=== PATIENT | male | born 1960 | race Caucasian/White ===

== ENCOUNTER 2021-12-26 08:15 | Outpatient (RCR) | payer OTHER, SELFPAY | END 2022-06-21 15:56 | disposition home or self-care (01) | PROVIDERS: PCP Family Medicine; Visit Provider Orthopaedic Surgery Sports Medicine | DX: M25.511 Pain in right shoulder (principal); Z51.89 Encounter for other specified aftercare | CPT/HCPCS: 97110 ==

== ENCOUNTER 2022-04-03 14:34 | Outpatient (CLI) | payer OTHER, SELFPAY ==
[2022-04-03 14:13] LABS: Albumin* 4.3 g/dL (3.3-5.0); Chloride* 100 mmol/L (96-114); Sodium* 138 mmol/L (135-149)
[2022-04-03 14:14] LABS: Potassium* 4.4 mmol/L (3.6-5.1)
[2022-04-03 14:15] LABS: Cholesterol* 156 mg/dL (90-199)
[2022-04-03 14:16] LABS: Alanine Aminotransferase* 26 U/L (4-50); Alkaline Phosphatase* 96 U/L (40-150); Aspartate Amino Transferase* 25 U/L (12-35); Bilirubin Total* 0.5 mg/dL (0.1-1.5); Blood Urea Nitrogen* 21 mg/dL (7-30); Carbon Dioxide* 25 mmol/L (20-32); Creatinine* 0.8 mg/dL (0.5-1.5); Estimated Glomerular Filt Rate 100 ml/min; Glucose* 99 mg/dL (60-115); Total Protein* 6.8 g/dL (6.0-8.3); Triglycerides* 208 mg/dL (40-149)
[2022-04-03 14:17] LABS: Calcium* 9.2 mg/dL (8.4-10.6); HDL Cholesterol* 41 mg/dL (>=40); LDL Cholesterol Calculated 73 mg/dL (<100)
[2022-04-03 14:43] LABS: PSA Screen* 1.23 ng/mL (0.10-4.00)
== END 2022-04-03 14:35 | disposition home or self-care (01) ==
PROVIDERS: PCP Family Medicine; Visit Provider Physician Assistant Medical
DX: Z00.00 Encounter for general adult medical examination without abnormal findings (principal); Z13.6 Encounter for screening for cardiovascular disorders; Z12.5 Encounter for screening for malignant neoplasm of prostate
CPT/HCPCS: 80053; 80061; 84153

== ENCOUNTER 2022-11-15 14:45 | Outpatient (RCR) | payer OTHER, SELFPAY | END 2023-02-14 10:23 | disposition home or self-care (01) | PROVIDERS: PCP Physician Assistant Medical; Visit Provider Physician Assistant Medical | DX: M54.50 Low back pain, unspecified (principal); Z51.89 Encounter for other specified aftercare | CPT/HCPCS: 97110; 97140; 97161 ==

== ENCOUNTER 2022-12-05 18:20 | Emergency (ER) | payer OTHER, SELFPAY ==
[2022-12-05 18:25] VITALS: BP 112/71; PULSE 77; RESP 16; TEMP 36.9; O2SAT 98; BMI 27.3
[2022-12-05 19:22] VITALS: BP 131/78; PULSE 90; RESP 16; O2SAT 99
--- NOTE | 2022-12-05 19:48 | CRLHL7_ITS ---
For Patients: As a result of the Century Cures Act, medical imaging exams and procedure reports are released immediately into your electronic medical record. You may view this report before your referring provider. If you have questions, please contact your health care provider. INDICATION: Mild suprapubic pain. Possible diverticulitis. COMPARISON: None available. TECHNIQUE: CT examination of the abdomen and pelvis was performed with the uneventful intravenous administration of 91 cc of Isovue 370 while 3 mm thick axial sections were obtained from the lung bases through the pubic symphysis. Oral contrast was not administered. Please note that all CT scans at this facility use dose modulation, iterative reconstruction, and/or weight-based dosing when appropriate to reduce radiation dose to as low as reasonably achievable. FINDINGS: In the abdomen, the liver, spleen, pancreas, and adrenals are normal in appearance. There are a few small cysts arising from the left kidney, the largest measuring 2.5 centimeters in diameter. The gallbladder is normal in appearance. The abdominal aorta is normal in caliber with no sign of dilatation. There is no sign of retroperitoneal mass or adenopathy. The stomach, loops of small bowel, and right colon in the abdomen are normal in appearance. There is moderate diverticulosis of the descending colon with no sign of diverticulitis. There are changes of mesh hernia repair of the mid and lower pelvic wall with no sign of recurrence of a hernia. In the pelvis, the retrocecal appendix is normal in appearance with no sign of inflammatory process. The loops of small bowel and rectum in the pelvis are normal in appearance. There is moderate thickening of the wall of the mid sigmoid colon with mild pericolonic inflammatory stranding and inflammation of a diverticulum projecting posteriorly from the sigmoid colon. The findings are that of diverticulitis with no sign of abscess or perforation. There is severe diverticulosis of the rest of the sigmoid colon. The prostate is moderately enlarged and is otherwise normal in appearance. The urinary bladder is normal in appearance. There is no sign of pelvic or inguinal mass or adenopathy. There is no sign of free air or free fluid in the abdomen or pelvis. The lung bases are clear. There is minimal scoliosis of the lumbar spine convex towards the left. There is minimal anterior subluxation of L5 on S1 with moderate L5-S1 disc degenerative disease. Minimal posterior subluxation of L1 on L2 and of L2 on L3 with mild L1-2 and L2-3 disc degenerative disease. There is severe L3-4 and moderate L4-5 disc degenerative disease. The components of a left total hip prosthesis are in anatomic alignment with no sign of fracture, loosening, or dislocation. There is no sign of fracture of the upper [place] osseous structures. IMPRESSION: CT of the pelvis shows diverticulitis of the mid sigmoid colon with no sign of abscess or perforation. Severe sigmoid diverticulosis. Moderate enlargement of the prostate. Status post mesh hernia repair of the mid and inferior pelvic wall with no sign of recurrence of hernia. CT of the abdomen shows moderate diverticulosis of the descending colon with no sign of diverticulitis. Please note that all CT scans at this facility use dose modulation, iterative reconstruction, and/or weight-based dosing when appropriate to reduce radiation dose to as low as reasonably achievable. Dictated by Gary Doe MD @ 12/05/2022 9:46:25 PM (Electronically Signed)
[2022-12-05] MEDS: 0.9 % SODIUM CHLORIDE 1000 ml 1,000 ML IV (20:05)
[2022-12-05 20:06] LABS: Basophils Percent Auto 0.3 % (0.0-3.0); Eosinophils Percent Auto 1.1 % (0.0-7.0); Hematocrit 44.2 % (37.0-53.0); Hemoglobin* 14.8 gm/dL (13.5-17.5); Immature Granulocytes Pct Auto 0.2 %; Lymphocytes Percent Auto 7.2 % (20-44); Mean Corpuscular HGB Conc 34 gm/dL (32-36); Mean Corpuscular Hemoglobin 32 pg (26-34); Mean Corpuscular Volume 94 fL (80-100); Monocytes Percent Auto 8.7 % (0.0-11.0); Neutrophils Percent Auto 82.5 % (42.0-72.0); Platelet Count* 204 K/uL (140-440); RDW Coefficient of Variation % 12.7 % (11.5-15.5); Red Blood Count 4.69 m/uL (4.30-5.90); White Blood Count* 12.57 K/uL (4.50-11.00)
[2022-12-05 20:18] LABS: Chloride* 98 mmol/L (96-114); Potassium* 4.5 mmol/L (3.6-5.1); Sodium* 135 mmol/L (135-149)
[2022-12-05 20:21] LABS: Carbon Dioxide* 30 mmol/L (20-32); Creatinine* 0.7 mg/dL (0.5-1.5); Est. Creatinine Clearance* 75.61; Estimated Glomerular Filt Rate 104 ml/min
[2022-12-05 20:22] LABS: Blood Urea Nitrogen* 23 mg/dL (7-30); Calcium* 8.9 mg/dL (8.4-10.6); Glucose* 97 mg/dL (60-115)
[2022-12-05 20:23] LABS: Slide Review Reflex No
[2022-12-05 20:46] LABS: Appearance Urine Clear (Clear); Bilirubin Urine Negative (Negative); Blood Urine Negative (Negative); Color Urine Yellow (Yellow); Glucose Urine Negative (Negative); Ketones Urine Negative (Negative); Leukocyte Esterase Urine Negative (Negative); Nitrite Urine Negative (Negative); Protein Urine Negative (Negative)
[2022-12-05 20:55] LABS: RBC Urine 0-2 (0-2); WBC Urine 0-2 (0-5)
[2022-12-05 21:00] VITALS: BP 103/71; RESP 16; O2SAT 99
--- NOTE | 2022-12-05 22:13 | ED_ITS ---
HPI - General Adult General Chief complaint: Abdominal Pain Stated complaint: Pain on the belt line since yesterday Time Seen by Provider: 12/05/22 19:34 History of Present Illness HPI narrative: Pain across belt line in front of lower abdomen. Denies N/V. Cramping when he needs to urinate. 1 episode of diarrhea last night. Lack of appetite today. 62-year-old man presenting to the emergency department with complaint of a cramping pain in the lower abdomen particularly with need to urinate. No actual dysuria. No hematuria. Did have nonbloody diarrhea last night. Not noted pain with bowel movement. Just has not felt like eating. No fever. Pain just not really going away. Pain increased over the course of today. No known diverticular disease. Is not constipated. Notes a history of abdominal wall hernia repair. Review of records concerns diverticular disease. History also of GERD. Related Data Home Medications Medication Instructions Recorded Confirmed aspirin 81 mg tablet,delayed 81 mg PO 01/10/22 12/18/22 release cephalexin 500 mg capsule 500 mg PO QDAY 04/06/22 12/18/22 cholecalciferol (vitamin D3) 50 50 mcg PO QDAY 04/06/22 12/18/22 mcg (2,000 unit) capsule Previous Rx's Medication Instructions Recorded losartan 25 mg tablet 25 mg PO DAILY #90 tabs 08/29/22 hydrochlorothiazide 12.5 mg tablet See Rx Instructions .Route 12/06/22 .COMPLEX #90 tabs simvastatin 40 mg tablet 40 mg PO .Bedtime #90 tabs 12/21/22 Allergies Allergy/AdvReac Type Severity Reaction Status Date / Time metronidazole Allergy Severe Rash Verified 12/18/22 15:31 lisinopril Allergy Mild Cough Verified 12/18/22 15:31 Review of Systems Status of ROS: Reports: 6 or more systems reviewed and unremarkable except as noted in History and below [facility] Medical History Tendinitis involving left hip abductors ?M76.892 - Other specified enthesopathies of left lower limb, excluding foot (ICD-10) Greater trochanteric bursitis of left hip ?M70.62 - Trochanteric bursitis, left hip (ICD-10) Anticoagulation goal of INR 2.0 to 2.5 ?Z51.81 - Encounter for therapeutic drug level monitoring (ICD-10) ?Z79.01 - senior living (current) use of anticoagulants (ICD-10) Surgical History History of arthroscopy of right shoulder (09/05/05) ?Z98.890 - Other specified postprocedural states (ICD-10) History of arthroscopy of left shoulder (11/16/05) ?Z98.890 - Other specified postprocedural states (ICD-10) History of shoulder surgery (06/30/08) ?Z98.890 - Other specified postprocedural states (ICD-10) History of arthroscopy of left shoulder (05/06/10) ?Z98.890 - Other specified postprocedural states (ICD-10) S/P left knee arthroscopy (07/02/14) ?Z98.890 - Other specified postprocedural states (ICD-10) S/P arthroscopic partial medial meniscectomy (11/16/16) ?Z98.890 - Other specified postprocedural states (ICD-10) History of carpal tunnel release (07/17/18) ?Z98.890 - Other specified postprocedural states (ICD-10) History of arthroscopy of left shoulder (07/30/19) ?Z98.890 - Other specified postprocedural states (ICD-10) Varicose veins of both lower extremities ?I83.93 - Asymptomatic varicose veins of bilateral lower extremities (ICD-10) 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) ?Z96.649 - Presence of unspecified artificial hip joint (ICD-10) History of colonoscopy ?Z98.890 - Other specified postprocedural states (ICD-10) Family History Brother Prostate cancer Mother Coronary artery disease Stroke High blood pressure Alzheimers disease Father High blood pressure Prostate cancer Son Anorexia Social History Narrative: Does not use illicit drugs Has 3 children Non-smoker Occasional alcohol consumption Smoking Status: Never smoker How often do you have a drink containing alcohol: never AUDIT-C Alcohol total score: 0 Non-prescribed substance use: denies use Little interest or pleasure in doing things: not at all Feeling down, depressed, or hopeless: not at all Exam Narrative: Exam Narrative: Pleasant. NAD. Breathing easily. Seems uncomfortable in transitions. Skin is warm and dry. No apparent rash. Extremities are without edema. Lungs appear to be clear. Heart in a regular rate and rhythm. Abdomen with normal bowel sounds. Mildly uncomfortable without peritoneal signs to palpation in the left lower and mid abdomen. No flank pain. Abdominal scars consistent with prior surgery. Const: Vital Signs, click to edit/add: Vital Signs - 24 hr 12/05/22 18:25 12/05/22 19:22 12/05/22 21:00 Temperature 98.4 F Pulse Rate [Pulse Oximeter] 77 90 Respiratory Rate 16 16 16 Blood Pressure [Ri ght Upper Arm] 112/71 131/78 103/71 Pulse Oximetry 98 99 99 Oxygen Delivery Me thod Room Air Room Air Room Air Documenting provider has reviewed patient's vital signs: yes Course Vital Signs Vital signs: Initial Vital Signs Temperature 98.4 F 12/05/22 18:25 Temperature Source Temporal Artery Scan 12/05/22 18:25 Pulse Rate 77 12/05/22 18:25 Pulse Rhythm Regular 12/05/22 18:25 Pulse Strength 3+ Normal 12/05/22 18:25 Respiratory Rate 16 12/05/22 18:25 Blood Pressure 112/71 12/05/22 18:25 Blood Pressure Mean 84 12/05/22 18:25 Blood Pressure Position Sitting 12/05/22 18:25 Pulse Oximetry 98 12/05/22 18:25 Oxygen Delivery Method Room Air 12/05/22 18:25 Vital Signs Temperature 98.4 F 12/05/22 18:25 Pulse Rate 77 12/05/22 18:25 Respiratory Rate 16 12/05/22 18:25 Blood Pressure 112/71 12/05/22 18:25 Pulse Oximetry 98 12/05/22 18:25 Oxygen Delivery Method Room Air 12/05/22 18:25 Temperature 98.4 F 12/05/22 18:25 Pulse Rate 90 12/05/22 19:22 Respiratory Rate 16 12/05/22 21:00 Blood Pressure 103/71 12/05/22 21:00 Pulse Oximetry 99 12/05/22 21:00 Oxygen Delivery Method Room Air 12/05/22 21:00 Medical Decision Making MDM Narrative Medical decision making narrative: Differential includes constipation, appendicitis, colitis, diverticulitis, ureteral stone and colic, cystitis, prostatitis, irritation of hernia. I suspect diverticulitis is most likely etiology. I think CT imaging would be warranted here regardless of labs. Does not want anything for pain or nausea. Will place IV and IV hydration anticipating contrasted imaging. Check labs. White count is mildly elevated. CRP as well. By my read the looks to be inflammatory changes visible in CT abdomen pelvis about the sigmoid colon consistent with diverticulitis. Otherwise diverticular disease is noted as well. INDICATION: Mild suprapubic pain. Possible diverticulitis. COMPARISON: None available. TECHNIQUE: CT examination of the abdomen and pelvis was performed with the uneventful intravenous administration of 91 cc of Isovue 370 while 3 mm thick axial sections were obtained from the lung bases through the pubic symphysis. Oral contrast was not administered. Please note that all CT scans at this facility use dose modulation, iterative reconstruction, and/or weight-based dosing when appropriate to reduce radiation dose to as low as reasonably achievable. FINDINGS: In the abdomen, the liver, spleen, pancreas, and adrenals are normal in appearance. There are a few small cysts arising from the left kidney, the largest measuring 2.5 centimeters in diameter. The gallbladder is normal in appearance. The abdominal aorta is normal in caliber with no sign of dilatation. There is no sign of retroperitoneal mass or adenopathy. The stomach, loops of small bowel, and right colon in the abdomen are normal in appearance. There is moderate diverticulosis of the descending colon with no sign of diverticulitis. There are changes of mesh hernia repair of the mid and lower pelvic wall with no sign of recurrence of a hernia. In the pelvis, the retrocecal appendix is normal in appearance with no sign of inflammatory process. The loops of small bowel and rectum in the pelvis are normal in appearance. There is moderate thickening of the wall of the mid sigmoid colon with mild pericolonic inflammatory stranding and inflammation of a diverticulum projecting posteriorly from the sigmoid colon. The findings are that of diverticulitis with no sign of abscess or perforation. There is severe diverticulosis of the rest of the sigmoid colon. The prostate is moderately enlarged and is otherwise normal in appearance. The urinary bladder is normal in appearance. There is no sign of pelvic or inguinal mass or adenopathy. There is no sign of free air or free fluid in the abdomen or pelvis. The lung bases are clear. There is minimal scoliosis of the lumbar spine convex towards the left. There is minimal anterior subluxation of L5 on S1 with moderate L5-S1 disc degenerative disease. Minimal posterior subluxation of L1 on L2 and of L2 on L3 with mild L1-2 and L2-3 disc degenerative disease. There is severe L3-4 and moderate L4-5 disc degenerative disease. The components of a left total hip prosthesis are in anatomic alignment with no sign of fracture, loosening, or dislocation. There is no sign of fracture of the [place] osseous structures. IMPRESSION: CT of the pelvis shows diverticulitis of the mid sigmoid colon with no sign of abscess or perforation. Severe sigmoid diverticulosis. Moderate enlargement of the prostate. Status post mesh hernia repair of the mid and inferior pelvic wall with no sign of recurrence of hernia. CT of the abdomen shows moderate diverticulosis of the descending colon with no sign of diverticulitis. Please note that all CT scans at this facility use dose modulation, iterative reconstruction, and/or weight-based dosing when appropriate to reduce radiation dose to as low as reasonably achievable. Dictated by Gary Doe MD @ 12/05/2022 9:46:25 PM Remained reasonably well in the emergency department with consistent vitals. See patient discharge plan Lab Data Lab results reviewed: Yes I reviewed the patient's lab results Labs: Lab Results 12/05/22 12/05/22 Range/Units 20:00 20:39 WBC 12.57 H (4.50-11.00) K/uL RBC 4.69 (4.30-5.90) m/uL Hgb 14.8 (13.5-17.5) gm/dL Hct 44.2 (37.0-53.0) % MCV 94 (80-100) fL MCH 32 (26-34) pg MCHC 34 (32-36) gm/dL RDW Coeff of Lennie 12.7 (11.5-15.5) % Plt Count 204 (140-440) K/uL Neut % (Auto) 82.5 H (42.0-72.0) % Lymph % (Auto) 7.2 L (20-44) % [place] % (Auto) 8.7 (0.0-11.0) % Eos % (Auto) 1.1 (0.0-7.0) % Baso % (Auto) 0.3 (0.0-3.0) % Neut # (Auto) 10.40 H (1.7-7.0) K/uL Lymph # (Auto) 0.90 (0.90-2.90) K/uL [place] # (Auto) 1.10 H (0.00-0.90) K/UL Eos # (Auto) 0.10 (0.00-0.50) K/uL Baso # (Auto) 0.00 (0.00-0.30) K/uL Abs Immat Gran (auto) 0.00 (0.00-0.30) K/uL Imm/Tot Granulo (auto) 0.2 % Sodium 135 (135-149) mmol/L Potassium 4.5 (3.6-5.1) mmol/L Chloride 98 (96-114) mmol/L Carbon Dioxide 30 (20-32) mmol/L BUN 23 (7-30) mg/dL Creatinine 0.7 (0.5-1.5) mg/dL Estimated Creat Clear 75.61 Estimated GFR 104 ml/min Glucose 97 (60-115) mg/dL Calcium 8.9 (8.4-10.6) mg/dL C-Reactive Protein 8.0 H (0.5-1.0) mg/dL Urine Color Yellow (Yellow) Urine Appearance Clear (Clear) Urine pH 8.0 (5.0-8.5) Ur Specific [place] 1.020 (1.000-1.030) Urine Protein Negative (Negative) Urine Glucose (UA) Negative (Negative) Urine Ketones Negative (Negative) Urine Blood Negative (Negative) Urine Nitrite Negative (Negative) Urine Bilirubin Negative (Negative) Urine Urobilinogen 2.0 A (0.2-1.0) Ur Leukocyte Esterase Negative (Negative) Urine RBC 0-2 (0-2) Urine WBC 0-2 (0-5) Ur Squamous Epith Cells None (None-Few) Urine Bacteria None (None) Discharge Plan Discharge Clinical Impression: Diverticulitis, Abdominal pain Patient Disposition: Home, Self-Care Condition: Stable Additional Instructions: Stay well-hydrated. Generally also maintain good fiber intake. Return for marked increase in persistent pain, fever, repeated vomiting. Metronidazole and ciprofloxacin and [place] from [facility]. Prescriptions: No Action aspirin 81 mg tablet,delayed release (DR/EC) 81 mg PO cephalexin 500 mg capsule 500 mg PO QDAY cholecalciferol (vitamin D3) 50 mcg (2,000 unit) capsule 50 mcg PO QDAY losartan 25 mg tablet 25 mg PO DAILY Qty: 90 1RF Rx Instructions: Take for high blood pressure. hydrochlorothiazide 12.5 mg tablet See Rx Instructions .ROUTE .COMPLEX Qty: 90 1RF Dose Instruction: Take 1 tablet by mouth once daily for blood pressure Rx Instructions: Take 1 tablet by mouth once daily for blood pressure simvastatin 40 mg tablet 40 mg PO .Bedtime Qty: 90 0RF Follow Up/Referrals: Caterina Helms PA-C [Primary Care Provider] - Stand Alone Forms: [facility] Info Instructions
== END 2022-12-05 22:19 | disposition home or self-care (01) ==
PROVIDERS: Emergency Provider Family Medicine; PCP Physician Assistant Medical
DX: K57.92 Diverticulitis of intestine, part unspecified, without perforation or abscess without bleeding (principal)
CPT/HCPCS: 36415; 74177; 80048; 81001; 85025; 86140; 99284; J7030; Q9967

== ENCOUNTER 2023-04-06 07:37 | Outpatient (CLI) | payer OTHER, SELFPAY | END 2023-04-06 07:38 | disposition home or self-care (01) | LOC: NFLDREF 04-07 08:43 | PROVIDERS: PCP Physician Assistant Medical; Referring Provider Physician Assistant Medical; Visit Provider Physician Assistant Medical | DX: E78.5 Hyperlipidemia, unspecified (principal); I10 Essential (primary) hypertension; Z12.5 Encounter for screening for malignant neoplasm of prostate; Z13.1 Encounter for screening for diabetes mellitus | CPT/HCPCS: 80053; 80061; 84153; 86140 ==

== ENCOUNTER 2023-07-25 14:08 | Outpatient (CLI) | payer OTHER, SELFPAY | END 2023-07-25 14:09 | disposition home or self-care (01) | LOC: LKVREF 14:09 | PROVIDERS: PCP Physician Assistant Medical; Visit Provider Physician Assistant Medical | DX: N48.6 Induration penis plastica (principal) | CPT/HCPCS: 84443 ==

== ENCOUNTER 2023-08-05 08:19 | Emergency (ER) | payer OTHER, SELFPAY ==
[2023-08-05 08:24] VITALS: BP 121/78; PULSE 56; RESP 18; TEMP 36.2; O2SAT 95; BMI 27.0
--- NOTE | 2023-08-05 08:42 | ED.GENADULT ---
HPI - General Adult General Date Seen: 08/05/23 Chief complaint: Allergic Reaction Stated complaint: allergic reaction to medication Time Seen by Provider: 08/05/23 08:25 Source: patient, RN notes reviewed and old records reviewed Mode of arrival: ambulatory Limitations: no limitations History of Present Illness HPI narrative: Patient is a 63-year-old male who was recently seen by Dr. Poole for problems with his right ear. He had been prescribed Augmentin previously and was switched to cefuroxime by Dr. Poole. Apparently the pharmacist told him to finish out his 1st prescription before starting the new 1, or at least that was his understanding, so he did not start the new antibiotic until Sunday morning, 2 days ago. He says this morning he has been intensely itchy. His skin was red from itching although it does not sound like he has had any hives or clear rash. He does have a history of an allergic reaction to metronidazole and developed a rash, he says that he was worried about getting to the point of having a rash like that again which is why came in. He took some Benadryl and used hydrocortisone prior to coming in. He has not had any difficulty breathing, facial swelling, wheezing or other airway concerns. Related Data Home Medications Medication Instructions Recorded Confirmed aspirin 81 mg tablet,delayed 81 mg PO 01/10/22 07/31/23 release cholecalciferol (vitamin D3) 50 50 mcg PO QDAY 04/06/22 07/31/23 mcg (2,000 unit) capsule famotidine 20 mg tablet 20 mg PO QDAY 04/09/23 07/31/23 Previous Rx's Medication Instructions Recorded simvastatin 40 mg tablet 40 mg PO .Bedtime #90 tabs 04/09/23 ciprofloxacin 0.3 %-dexamethasone 4 drp otic (ear) QID 5 days #7.5 mL 07/25/23 0.1 % ear drops,suspension hydrochlorothiazide 12.5 mg tablet 12.5 mg PO QDAY #90 tabs 07/25/23 losartan 100 mg tablet 100 mg PO QDAY #90 tabs 07/25/23 cefuroxime axetil 500 mg tablet 500 mg PO BID 7 days #14 tabs 07/31/23 ciprofloxacin 0.3 %-dexamethasone 4 drp otic (ear) QID 7 days #7.5 mL 07/31/23 0.1 % ear drops,suspension clindamycin HCl 150 mg capsule 150 mg PO TID #15 caps 08/05/23 Allergies Allergy/AdvReac Type Severity Reaction Status Date / Time metronidazole Allergy Severe Rash Verified 07/31/23 09:04 lisinopril Allergy Mild Cough Verified 07/31/23 09:04 Review of Systems Status of ROS: Reports: 6 or more systems reviewed and unremarkable except as noted in History and below [facility] Medical History Elevated C-reactive protein (CRP) ?R79.82 - Elevated C-reactive protein (CRP) (ICD-10) Tendinitis involving left hip abductors ?M76.892 - Other specified enthesopathies of left lower limb, excluding foot (ICD-10) Greater trochanteric bursitis of left hip ?M70.62 - Trochanteric bursitis, left hip (ICD-10) Anticoagulation goal of INR 2.0 to 2.5 ?Z51.81 - Encounter for therapeutic drug level monitoring (ICD-10) ?Z79.01 - senior living (current) use of anticoagulants (ICD-10) Surgical History History of arthroscopy of right shoulder (09/05/05) ?Z98.890 - Other specified postprocedural states (ICD-10) History of arthroscopy of left shoulder (11/16/05) ?Z98.890 - Other specified postprocedural states (ICD-10) History of shoulder surgery (06/30/08) ?Z98.890 - Other specified postprocedural states (ICD-10) History of arthroscopy of left shoulder (05/06/10) ?Z98.890 - Other specified postprocedural states (ICD-10) S/P left knee arthroscopy (07/02/14) ?Z98.890 - Other specified postprocedural states (ICD-10) S/P arthroscopic partial medial meniscectomy (11/16/16) ?Z98.890 - Other specified postprocedural states (ICD-10) History of carpal tunnel release (07/17/18) ?Z98.890 - Other specified postprocedural states (ICD-10) History of arthroscopy of left shoulder (07/30/19) ?Z98.890 - Other specified postprocedural states (ICD-10) Varicose veins of both lower extremities ?I83.93 - Asymptomatic varicose veins of bilateral lower extremities (ICD-10) 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) ?Z96.649 - Presence of unspecified artificial hip joint (ICD-10) History of colonoscopy ?Z98.890 - Other specified postprocedural states (ICD-10) Family History Brother Prostate cancer Mother Coronary artery disease Stroke High blood pressure Alzheimers disease Father High blood pressure Prostate cancer Son Anorexia Social History Narrative: Does not use illicit drugs Has 3 children Non-smoker Occasional alcohol consumption Smoking Status: Never smoker How often do you have a drink containing alcohol: never AUDIT-C Alcohol total score: 0 Non-prescribed substance use: denies use Little interest or pleasure in doing things: not at all Feeling down, depressed, or hopeless: not at all service: Yes Exam Narrative: Exam Narrative: Vital signs reviewed In general, alert, well-appearing male. Breathing easily. ENT: Right ear continues to look abnormal, tiny perforation, erythema and granulation tissue. Left is normal. Oropharynx is normal, throat is normal. Neck: Supple, no stridor. Lungs: Clear no wheezing. Skin: Warm and dry well perfused. No rash at this time. Const: Vital Signs, click to edit/add: Vital Signs - 24 hr 08/05/23 08:24 Temperature 97.2 F L Pulse Rate [Pulse Oximeter] 56 L Respiratory Rate 18 Blood Pressure [Ri ght Upper Arm] 121/78 Pulse Oximetry 95 Oxygen Delivery Me thod Room Air Documenting provider has reviewed patient's vital signs: yes Course Course ED Course: Discussed management of the itching, he can continue to use Benadryl or can use a nonsedating antihistamine such as Zyrtec once or twice a day for the next couple of days until symptoms resolve. Will have him hold the cefuroxime, will discuss alternative with Dr. Poole in and prescribed appropriately. He has an appointment scheduled for follow-up with ENT on Sunday, in [address] Poole, prescribed Clindamycin per his recommendation. Plan for CT temporal bones at follow up appointment. Vital Signs Vital signs: Initial Vital Signs Temperature 97.2 F L 08/05/23 08:24 Temperature Source Temporal Artery Scan 08/05/23 08:24 Pulse Rate 56 L 08/05/23 08:24 Pulse Rhythm Regular 08/05/23 08:24 Pulse Strength 3+ Normal 08/05/23 08:24 Respiratory Rate 18 08/05/23 08:24 Blood Pressure 121/78 08/05/23 08:24 Blood Pressure Mean 92 08/05/23 08:24 Blood Pressure Position Sitting 08/05/23 08:24 Pulse Oximetry 95 08/05/23 08:24 Oxygen Delivery Method Room Air 08/05/23 08:24 Vital Signs Temperature 97.2 F L 08/05/23 08:24 Pulse Rate 56 L 08/05/23 08:24 Respiratory Rate 18 08/05/23 08:24 Blood Pressure 121/78 08/05/23 08:24 Pulse Oximetry 95 08/05/23 08:24 Oxygen Delivery Method Room Air 08/05/23 08:24 Temperature 97.2 F L 08/05/23 08:24 Pulse Rate 56 L 08/05/23 08:24 Respiratory Rate 18 08/05/23 08:24 Blood Pressure 121/78 08/05/23 08:24 Pulse Oximetry 95 08/05/23 08:24 Oxygen Delivery Method Room Air 08/05/23 08:24 Discharge Plan Discharge Clinical Impression: Drug-induced pruritus Patient Disposition: Home, Self-Care Condition: Stable Instructions: Itchy Skin (ED) Additional Instructions: Continue with Benadryl every 6 hours or Zyrtec once or twice a day as discussed for the next day or 2 or until itching subsides. For wheezing, difficulty breathing return to the ER. Discontinue current antibiotic, I will send a prescription for an alternate to your pharmacy shortly. Follow-up with Dr. Poole as planned. Prescriptions: New clindamycin HCl 150 mg capsule 150 mg PO TID Qty: 15 0RF No Action aspirin 81 mg tablet,delayed release (DR/EC) 81 mg PO cholecalciferol (vitamin D3) 50 mcg (2,000 unit) capsule 50 mcg PO QDAY famotidine 20 mg tablet 20 mg PO QDAY simvastatin 40 mg tablet 40 mg PO .Bedtime Qty: 90 3RF ciprofloxacin-dexamethasone 0.3-0.1 % drops,suspension 4 drp otic (ear) QID 5 Days Qty: 7.5 2RF Rx Instructions: TO AFFECTED EAR(S) losartan 100 mg tablet 100 mg PO QDAY Qty: 90 0RF Rx Instructions: New dose 1 tablet once daily for blood pressure hydrochlorothiazide 12.5 mg tablet 12.5 mg PO QDAY Qty: 90 3RF Rx Instructions: once a day for blood pressure cefuroxime axetil 500 mg tablet 500 mg PO BID 7 Days Qty: 14 0RF ciprofloxacin-dexamethasone 0.3-0.1 % drops,suspension 4 drp otic (ear) QID 7 Days Qty: 7.5 3RF Follow Up/Referrals: Caterina Helms PA-C [Primary Care Provider] - Stand Alone Forms: [facility] Info Instructions
== END 2023-08-05 08:50 | disposition home or self-care (01) ==
LOC: ED 08:44
PROVIDERS: Emergency Provider Emergency Medicine; PCP Physician Assistant Medical
DX: L29.8 Other pruritus (principal)
CPT/HCPCS: 99282; 99283; 99284

== ENCOUNTER 2023-11-20 08:18 | Emergency (ER) | payer OTHER, SELFPAY ==
[2023-11-20 08:21] VITALS: BP 129/73; PULSE 63; RESP 18; TEMP 36.9; O2SAT 97; BMI 25.8
--- NOTE | 2023-11-20 08:56 | ED_ITS ---
HPI - Abdominal Pain General Chief Complaint: Abdominal Pain Stated Complaint: Abdominal pain Time Seen by Provider: 11/20/23 08:26 History of Present Illness HPI narrative: This 63-year-old male comes in reporting abdominal pain over the past few days and became significantly worse last evening. He states that he did not sleep so well last night. Pain is worse with movement and especially when going over the bumps on the road on the way here. He has some increased pain when standing up straight also. The pain is localized in his left lower quadrant and he does have a history of diverticulitis. He arrives with normal vital signs. He does not report any blood in the toilet and has not had any fevers. Related Data Home Medications ?Medication ?Instructions ?Recorded ?Confirmed aspirin 81 mg tablet,delayed 81 mg PO 01/10/22 08/23/23 release cholecalciferol (vitamin D3) 50 50 mcg PO QDAY 04/06/22 08/23/23 mcg (2,000 unit) capsule famotidine 20 mg tablet 20 mg PO QDAY 04/09/23 08/23/23 Previous Rx's ?Medication ?Instructions ?Recorded simvastatin 40 mg tablet 40 mg PO .Bedtime #90 tabs 04/09/23 ciprofloxacin 0.3 %-dexamethasone 4 drp otic (ear) QID 5 days #7.5 mL 07/25/23 0.1 % ear drops,suspension hydrochlorothiazide 12.5 mg tablet 12.5 mg PO QDAY #90 tabs 07/25/23 ciprofloxacin 0.3 %-dexamethasone 4 drp otic (ear) QID 7 days #7.5 mL 07/31/23 0.1 % ear drops,suspension clindamycin HCl 150 mg capsule 150 mg PO TID #15 caps 08/05/23 losartan 100 mg tablet 100 mg PO QDAY #90 tabs 10/26/23 amoxicillin 875 mg-potassium 1 tab PO BID #20 tabs 11/20/23 clavulanate 125 mg tablet Allergies Allergy/AdvReac Type Severity Reaction Status Date / Time metronidazole Allergy Severe Rash Verified 08/23/23 14:31 lisinopril Allergy Mild Cough Verified 08/23/23 14:31 Review of Systems Status of ROS Reports: 10 or more systems reviewed and unremarkable except as noted in History and below Narrative Constitutional: No fevers, no weight gain or loss. Eyes: No discharge. No vision changes. HENT: No congestion, no sore throat, no ear pain. Cardiovascular: No chest pain, no palpitations. Respiratory: No shortness of breath, no wheezes, no cough. Gastrointestinal: No vomiting, no diarrhea. Abdominal pain as described above. Genitourinary: No dysuria, no hematuria. Musculoskeletal: Normal range of motion. Skin: No rashes, no pruritis. Neurological: No dizziness, weakness, sensory change, speech change. Endo/Heme/Allergies: No bruising or bleeding. No polydipsia. Pysch: no suicidality, no anxiety, no insomnia. All other systems reviewed and are negative. [facility] Medical History Elevated C-reactive protein (CRP) ?R79.82 - Elevated C-reactive protein (CRP) (ICD-10) Tendinitis involving left hip abductors ?M76.892 - Other specified enthesopathies of left lower limb, excluding foot (ICD-10) Greater trochanteric bursitis of left hip ?M70.62 - Trochanteric bursitis, left hip (ICD-10) Anticoagulation goal of INR 2.0 to 2.5 ?Z51.81 - Encounter for therapeutic drug level monitoring (ICD-10) ?Z79.01 - skilled nursing (current) use of anticoagulants (ICD-10) Surgical History History of arthroscopy of right shoulder (09/05/05) ?Z98.890 - Other specified postprocedural states (ICD-10) History of arthroscopy of left shoulder (11/16/05) ?Z98.890 - Other specified postprocedural states (ICD-10) History of shoulder surgery (06/30/08) ?Z98.890 - Other specified postprocedural states (ICD-10) History of arthroscopy of left shoulder (05/06/10) ?Z98.890 - Other specified postprocedural states (ICD-10) S/P left knee arthroscopy (07/02/14) ?Z98.890 - Other specified postprocedural states (ICD-10) S/P arthroscopic partial medial meniscectomy (11/16/16) ?Z98.890 - Other specified postprocedural states (ICD-10) History of carpal tunnel release (07/17/18) ?Z98.890 - Other specified postprocedural states (ICD-10) History of arthroscopy of left shoulder (07/30/19) ?Z98.890 - Other specified postprocedural states (ICD-10) Varicose veins of both lower extremities ?I83.93 - Asymptomatic varicose veins of bilateral lower extremities (ICD-10) 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) ?Z96.649 - Presence of unspecified artificial hip joint (ICD-10) History of colonoscopy ?Z98.890 - Other specified postprocedural states (ICD-10) Family History Brother Prostate cancer Mother Coronary artery disease Stroke High blood pressure Alzheimers disease Father High blood pressure Prostate cancer Son Anorexia Social History Narrative: Does not use illicit drugs Has 3 children Non-smoker Occasional alcohol consumption Smoking Status: Never smoker How often do you have a drink containing alcohol: never AUDIT-C Alcohol total score: 0 Non-prescribed substance use: denies use Little interest or pleasure in doing things: not at all Feeling down, depressed, or hopeless: not at all service: Yes Exam Narrative: Exam Narrative: Constitutional: Well-developed, well-nourished, no acute distress. HEENT: Normocephalic, atraumatic. Neck: Normal range of motion. Nontender. Supple. Heart: Regular. No murmurs. Normal rate. Intact distal pulses. Lungs: Clear to auscultation. No chest discomfort. No wheezes, rhonchi, or rales. Abdomen: Decreased bowel sounds. Pain localized in left lower quadrant. Rebound tenderness is present. No guarding. Genitalia: Deferred. Back: No midline tenderness. Normal range of motion. Extremities: Normal range of motion. No injury. Skin: Intact. No rash. Warm. No erythema or pallor. Neurologic: No altered sensation. No weakness. Alert and oriented. Psychiatric: No suicidality. No anxiety or depression. No insomnia. Nursing notes and vitals signs are reviewed. Const: Vital Signs, click to edit/add: Vital Signs - 24 hr 11/20/23 08:21 Temperature 98.5 F Pulse Rate [Right Pulse Oximeter] 63 Respiratory Rate 18 Blood Pressure [Ri ght Upper Arm] 129/73 Pulse Oximetry 97 Oxygen Delivery Me thod Room Air Course Vital Signs Vital signs: Initial Vital Signs Temperature 98.5 F 11/20/23 08:21 Temperature Source Temporal Artery Scan 11/20/23 08:21 Pulse Rate 63 11/20/23 08:21 Respiratory Rate 18 11/20/23 08:21 Blood Pressure 129/73 11/20/23 08:21 Blood Pressure Mean 91 11/20/23 08:21 Blood Pressure Position Sitting 11/20/23 08:21 Pulse Oximetry 97 11/20/23 08:21 Oxygen Delivery Method Room Air 11/20/23 08:21 Vital Signs Temperature 98.5 F 11/20/23 08:21 Pulse Rate 63 11/20/23 08:21 Respiratory Rate 18 11/20/23 08:21 Blood Pressure 129/73 11/20/23 08:21 Pulse Oximetry 97 11/20/23 08:21 Oxygen Delivery Method Room Air 11/20/23 08:21 Temperature 98.5 F 11/20/23 08:21 Pulse Rate 63 11/20/23 08:21 Respiratory Rate 18 11/20/23 08:21 Blood Pressure 129/73 11/20/23 08:21 Pulse Oximetry 97 11/20/23 08:21 Oxygen Delivery Method Room Air 11/20/23 08:21 MDM - Abdominal Pain MDM Narrative Medical decision making narrative: This patient has a history of diverticulitis discovered with CT imaging. His symptoms are suspicious for recurrent episode of diverticulitis. I did discuss the role of CT imaging but indicated this as an optional tool given the reassurance is of his vital signs and other exam. Most likely he will need to be treated for diverticulitis. The patient declined any lab and imaging at this time and understands signs and symptoms that would indicate a need for return and re-evaluation. He states that he had a reaction to the previous treatment which included Flagyl and Cipro. I provided prescription for Augmentin. He states that he will use [id number] pain medicines also as needed and directed. Discharge Plan Discharge Clinical Impression: Diverticulitis Patient Disposition: Home, Self-Care Condition: Stable Instructions: Diverticulitis (DC), Diverticulitis Diet (ED) Additional Instructions: Take medication as prescribed. Follow up with MD or return if worsening. Prescriptions: New amoxicillin-pot clavulanate 875-125 mg tablet 1 tab PO BID Qty: 20 0RF No Action aspirin 81 mg tablet,delayed release (DR/EC) 81 mg PO cholecalciferol (vitamin D3) 50 mcg (2,000 unit) capsule 50 mcg PO QDAY famotidine 20 mg tablet 20 mg PO QDAY simvastatin 40 mg tablet 40 mg PO .Bedtime Qty: 90 3RF ciprofloxacin-dexamethasone 0.3-0.1 % drops,suspension 4 drp otic (ear) QID 5 Days Qty: 7.5 2RF Rx Instructions: TO AFFECTED EAR(S) hydrochlorothiazide 12.5 mg tablet 12.5 mg PO QDAY Qty: 90 3RF Rx Instructions: once a day for blood pressure ciprofloxacin-dexamethasone 0.3-0.1 % drops,suspension 4 drp otic (ear) QID 7 Days Qty: 7.5 3RF clindamycin HCl 150 mg capsule 150 mg PO TID Qty: 15 0RF losartan 100 mg tablet 100 mg PO QDAY Qty: 90 0RF Rx Instructions: New dose 1 tablet once daily for blood pressure Follow Up/Referrals: Caterina Helms PA-C [Primary Care Provider] - Stand Alone Forms: [facility] Info Instructions
--- OUTSIDE RECORDS SUMMARY | 2023-11-20 09:03 | XMS_ITS | Continuity of Care Document ---
Author Organization [facility], [facility] Address [address] [place] [address] Care Team Providers Care Critical Care Educator Name Role Phone [facility] Primary Care Provider [phone] Assessment Encounter Date Assessment Date Assessment LastModified by Organization Details LastModified Time 11/15/2023 11/15/2023 63 yoM with Peyronie's disease, erectile dysfunction rstromquist Not available 11/13/2023 14:15:07 Plan of Treatment Reminders Order Date Submit Date Provider Last Modified By Organization Details Last Modified Time Details Appointments ESTABLISH ED 10 2023 01:30P Cari Carrillo MD Not available Not available Not available ESTABLISH ED 10 2023 08:40A M Jaret Carrillo MD Not available Not available Not available Lab None recorded. Referral None recorded. Procedures None recorded. Surgeries None recorded. Imaging None recorded. Medication Orders None recorded. Patient TargetsNo targets recorded. Patient InstructionsNo instructions recorded. Reason for Referral None Reported. Procedures Surgical History Date Name Laterality Status Provider Name and Address Organization Details Recorded Time 4 Darcie Carrillo active Skylar vicente, [facility] 11/19/2023 16:43:25 4 COMPLEX VISIT completed Jaret Carrillo MD [address] [place] [address],[address], [address], [facility] 11/15/2023 17:53:42 4 Darcie Carrillo completed Skylar vicente, [facility] 10/02/2023 14:40:59 4 Darcie completed Jaret Carrillo MD [address] [place] [address],[address] [place] [address], [id number], [facility] 10/04/2023 13:33:48 4 Xiaflex - Gerardo completed Skylar Gautam null, [facility] 09/28/2023 10:50:27 4 Xiaflex completed Jaret Carrillo MD [address], [place], [address], [facility] 10/01/2023 13:17:07 2 Colonoscopy completed Susan Fieldson null, [facility] 11/15/2023 14:33:18 0 Hernia Repair completed [facility], [facility] 11/15/2023 14:32:55 Imaging Results None recorded. Procedure Notes None recorded. Medical Equipment None Reported. Allergies Allergen ID Allergen Name Allergen Category Reaction Reaction Severity Criticality Documentation Date Start Date Code Code System Note Provider Name and Address Organization Details Recorded Time 996832 metronida zole medicatio n Not available Not available Not available 08/22/2023 6922 RxNorm [facility], [facility] 4 14:48:33 179428 lisinopri l medicatio n Not available Not available Not available 08/22/2023 22775 RxNorm [facility], [facility] 4 14:49:08 Medications Name Sig Start Date Stop Date Status Note LastModified by Organization Details LastModified Time losartan 50 mg tablet TAKE 1 TABLET BY MOUTH ONCE DAILY 08/21 completed Not Available Not Available Not Available cyclobenzap rine 10 mg tablet TAKE 1 TABLET BY MOUTH TWICE DAILY NEEDED FOR MUSCLE SPASM MAY CAUSE DROWSINES S 08/21 completed Not Available Not Available Not Available minocycline 100 mg capsule TAKE 1 CAPSULE BY MOUTH TWICE DAILY 08/21 completed Not Available Not Available Not Available prednisone 20 mg tablet TAKE 2 TABLETS BY MOUTH ONCE DAILY FOR 5 DAYS 08/21 completed Not Available Not Available Not Available clindamycin HCl 150 mg capsule TAKE 1 CAPSULE BY MOUTH THREE TIMES DAILY 08/21 completed Not Available Not Available Not Available simvastatin 40 mg tablet TAKE 1 TABLET BY MOUTH AT BEDTIME active Not Available Not Available No t Available meloxicam 7.5 mg tablet TAKE 1 TABLET BY MOUTH TWICE DAILY FOR BACK PAIN 08/21 completed Not Available Not Available Not Available losartan 25 mg tablet TAKE 1 TABLET BY MOUTH ONCE DAILY FOR HIGH BLOOD PRESSURE 08/21 completed Not Available Not Available Not Available cefuroxime axetil 500 mg tablet TAKE 1 TABLET BY MOUTH TWICE DAILY FOR 7 DAYS 08/21 completed Not Available Not Available Not Available losartan 100 mg tablet TAKE 1 TABLET BY MOUTH ONCE DAILY FOR BLOOD PRESSURE APPT active Not Available Not Available No t Available amoxicillin 500 mg-potassiu m clavulanate 125 mg tablet TAKE 1 TABLET BY MOUTH TWICE DAILY FOR 7 DAYS 08/21 completed Not Available Not Available Not Available clindamycin 1 % lotion APPLY LOTION TOPICALLY TWICE DAILY FOR 14 DAYS TO NECK 08/21 completed Not Available Not Available Not Available ciprofloxac in 0.3 %-dexametha sone 0.1 % ear drops,suspe nsion INSTILL 4 DROPS INTO THE EAR(S) 4 TIMES DAILY FOR 7 DAYS active Not Available Not Available No t Available Pepcid active Not Available Not Availa ble Not Available hydrochloro thiazide 12.5 mg tablet TAKE 1 TABLET BY MOUTH ONCE DAILY FOR BLOOD PRESSURE active Not Available Not Available No t Available Xiaflex 0.9 mg solution for injection Take 0.58 mg by injection route. 2023 active Not Available Not Available Not Avai lable Vitals Date Recorded Body height Body mass index (BMI) Body weight Provider Name and Address Organization Details Last Updated DateTime 11/15/2023 175.26 cm 26.9 kg/m2 40736.81 g Susan Ramirez [facility] 11/15/2023 14:31:14 Social History Question Answer Notes LastModified by Organizat ion Details LastModified Time Tobacco Smoking Status Never Smoker Skylar vicente [facility] 08/22/2023 14:50:51 What Is Your Level Of Alcohol Consumption? Moderate Information not available 08/22/2023 What Is Your Level Of Caffeine Consumption? Moderate [email or web address] Information not available 11/15/2023 Race White [email or web address] Information not available 11/15/2023 Ethnicity Not /Lati no [email or web address] Information not available 11/15/2023 Preferred Language Guamanian [email or web address] Information not available 11/15/2023 What Was The Date Of Your Most Recent Tobacco Screening? 11/15/2023 [email or web address] Information not available 11/15/2023 How Many Days In The Past Year Have You Consumed 5 Or More Drinks? 0 Information not available 08/22/2023 Sex: Unknown Functional Status None recorded. Mental Status None recorded. Family History Relationship Description Onset Age of this Age Resolved Age Notes Father No current problems or disability Mother No current problems or disability Medical History Condition Response Other N High Blood Pressure Y Kidney Stones N Lung Disease N Depression N GERD/Acid Reflux Y Diabetes N Sexually Transmitted Infection N Bleeding Disorder N Cancer Y High Cholesterol Y Heart Disease N Immunizations Vaccine Type Date Status Provider Name and Address Organization Details Recorded Time Influenza, split virus, quadrivalent, preservative 05/17/2017 completed Skylar Stromquist null, [facility] 08/22/2023 14:48:06 Influenza, recombinant, quadrivalent, PF 04/09/2020 [facility] 14:48:06 zoster recombinant 07/04/2020 [facility] 14:48:06 zoster recombinant 04/09/2020 [facility]23 14:48:06 COVID-19, mRNA, LNP-S, PF, 30 mcg/0.3 mL dose 08/14/2020 completed Skylar Stromquist null, [facility] 08/22/2023 14:48:06 COVID-19, mRNA, LNP-S, PF, 30 mcg/0.3 mL dose 09/04/2020 completed Skylar Stromquist null, [facility] 08/22/2023 14:48:06 COVID-19, mRNA, LNP-S, PF, 30 mcg/0.3 mL dose, adnrea-sucrose 06/17/2021 [facility] 14:48:06 Tdap 05/18/2015 [facility]23 14:48:06 Influenza, split virus, trivalent, preservative 02/26/2004 completed Skylar Stromquist null, [facility] 08/22/2023 14:48:06 Influenza, split virus, trivalent, PF 07/31/2011 completed Skylar Stromquist null, [facility] 08/22/2023 14:48:06 Influenza, split virus, trivalent, PF 03/12/2009 completed Skylar Stromquist null, [facility] 08/22/2023 14:48:06 Influenza, split virus, trivalent, PF 04/28/2010 completed Skylar Stromquist null, [facility] 08/22/2023 14:48:06 Td (adult), 2 Lf tetanus toxoid, preservative free, adsorbed 02/26/2004 completed Skylar Stromquist null, [facility] 08/22/2023 14:48:06 Influenza, split virus, quadrivalent, PF 04/06/2022 completed Skylar Stromquist null, [facility] 08/22/2023 14:48:06 Influenza, split virus, quadrivalent, PF 05/18/2015 completed Skylar Stromquist null, [facility] 08/22/2023 14:48:06 Past Encounters Encounter ID Performer Location Encounter Start Date Encounter Closed Date Diagnosis/Indication Diagnosis SNOMED-CT Code [id number] Jaret Carrillo MD [facility] [address] [place] [address] 11/15/2023 14:27:11 11/16/2023 13:12:07 Induration penis plastica [id number] Primary er ectile dysfunction [id number] Health Concerns Section Related Observation LastModified by Organization Detai ls LastModified Time None Recorded Concern Status LastModified by Organization Details LastModified Time None Recorded Payers Encounter Date Sequence Insurance Name Policy Number Policy Riddle Covered Member ID Riddle Member ID Guarantor Name 11/15/2023 1 [facility] [id number] Kacey Troncosonelly [id number] Alfredito Bernard Notes Date Note Type Note Provider Name and Address Organization Details Recorded Time 11/15/2023 text/html HPI Notes: Mr. Bernard is a very pleasant 63 year old male who is referred to me by his PCP, Ms. Caterina Helms PA-C, regarding suspected Peyronie's disease. First noted curvature: 4 months ago Current curvature: 35 degrees by goniometer Direction of curvature: dorsal Indentation/Hourgl ass: none Presence of Pain: no Quality of Erections: 3 out of 4 (Erectile Hardness Scale) Able to penetrate: yes but difficult Current treatment: none Seen today with his who provides some of the history 10/01/2023: Here for follow up Peyronie's disease. Xiaflex injection #1 10/04/2023: Here for follow up Peyronie's disease. Xiaflex injection #2. No significant adverse effects from injection 1. 11/15/2023: Here for follow up Peyronie's disease. Completed Xiaflex cycle 1. Today he reports 30 degrees of residual curvature Jaret Carrillo MD [address], [place], [address], [facility] 11/15/2023 17:53:56
--- OUTSIDE RECORDS SUMMARY | 2023-11-20 09:03 | XMS_ITS | Clinical Summary ---
Author Organization [facility] Address [place], [place] [address] Care Team Providers Care Skip Locator Name Role Phone [facility] Primary Care Provider Unavailabl e Allergies No known active allergies Medications Medication Sig Dispensed Refills Start Date End Date Status simvastatin (ZOCOR) 40 mg tablet Take 1 tablet by mouth at bedtime. 0 01/13/2016 Active aspirin (ECOTRIN) 81 mg enteric coated tablet Take 1 tablet by mouth once daily with a meal. 0 01/13/2016 Active lisinopril (PRINIVIL; ZESTRIL) 10 mg tablet Take 10 mg by mouth once daily. 07/05/2019 Active minocycline (MINOCIN) 100 mg capsule Take 100 mg by mouth 2 times daily. 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 Resolved Problems Problem Noted Date Diagnosed Date Resolved Date Hernia of other specified si ericka, with gangrene 08/10/2005 11/13/2005 NEOP, BNG, CHOROID-OD 05/17/20012005 HERNIA, UNILATERAL INGUINAL, W/O OBST/GNGR 12/11/2000 11/13/2005 EXAMINATION, PREOPERATIVE NEC 12/11/2000 11/20/2005 Encounters Date Type Department Care Team Description 10/23/2023 1:00 PM CDT Office Visit [facility] [address] [place], [place] [id number] Freddie Gallagher, OD Follow Up (Contact Lens Fitting and 6 Month IOP Ck ) 10/23/2023 Travel from Last 3 Months Immunizations Name Administration Dates Next Due Influenza, IIV3 (Age >=3 years) 02/26/2004 Td (Age >=7 Years) 02/26/2004 Family History Medical History Relation Name Comments Other Brother lazy eye Cancer-prostate Father at age 60 Other Maternal Aunt macular degene ration Heart Disease Mother CAD Hypertension Mother HTN Relation Name Status Comments Brother Father (Age 60) Maternal Aunt Mother Social History Tobacco Use Types Packs/Day Years Used Date Smoking Tobacco: Never Smokeless Tobacco: Never Alcohol Use Standard Drinks/Week Comments Yes 0 (1 standard drink = 0.6 oz pur e alcohol) Alcoholic Drinks/day: .001 Sex and Gender Information Value Date Recorded Sex Assigned at Not on file Gender Identity Not on file Sexual Orientation Not on file Obstetrics History Last Filed Vital Signs Vital Sign Reading Time Taken Comments Blood Pressure 131/80 01/13/2016 1:25 PM CDT Pulse 74 01/13/2016 1:25 PM CDT Temperature 36.7 ??C (98 ??F) 11/20/2005 11:00 AM CDT Respiratory Rate 16 07/20/2005 2:15 PM MEMBER SERVICE SPECIALIST Oxygen Saturation - - Inhaled Oxygen Concentration - - Weight 86.6 kg (191 lb) 08/17/2008 1:51 PM CDT Height 170.2 cm (5' 7) 11/13/2005 1:30 PM CDT Body Mass Index 29.91 11/13/2005 1:30 PM CDT Plan of Treatment Health Maintenance Due Date Last Done Comments Tdap 1970 Depression screening for age 12+ 1971 HIV for age 15-65 1974 BMI (ht and wt on same day) for age 18+ 1977 Hepatitis C screening for ag e 18-79 1977 Colonoscopy through age 75 2004 Zoster (shingles) series for age 50+ (1 of 2) 2009 Lipids for age 45-75 07/31/2010 07/31/2005 Tetanus booster 02/25/2014 02/26/2004 COVID-19 vaccine series (2022- season) 2023 06/17/2021, 09/04/2020, 08/14/2020 Influenza for age 50-64 01/27/2024 02/26/2004 Pneumococcal series for age 6-64 Aged Out No longer eligible b ased on patient's age to complete this topic Procedures Procedure Name Priority Date/Time Associated Diagnosis Comments LIPID PANEL Routine 07/31/2005 3:15 PM MEMBER SERVICE SPECIALIST Screening Lipid Disorders from Last 3 Months or Most Recently Relevant to Health Maintenance Results * (ABNORMAL) LIPID PANEL (07/31/2005 3:15 PM MEMBER SERVICE SPECIALIST) CHOLESTEROL,TOTAL 230(H) 110 - 199 mg/dL [facility] TRIGLYCERIDES 122 40 - 149 mg/dL [facility] HDL CHOLESTEROL 51 >40 mg/dL [facility] CHOL/HDL RATIO 4.51(H) <4.51 [facility] LDL CHOLESTEROL 155(H) <131 mg/dL [facility] PATIENT STATUS Fasting [facility] Blood specimen (specimen) BLOOD SPECIMEN / Unknown 07/31/2005 3:15 PM MEMBER SERVICE SPECIALIST 07/31/2005 3:13 PM MEMBER SERVICE SPECIALIST Tara Dillard MD CHEMISTRY [facility] [place] ZIP [address] [place] [phone] from Last 3 Months or Most Recently Relevant to Health Maintenance Care Teams Skip Locator Relationship Specialty Start Date End Date [facility] PCP - General 05/09/12
== END 2023-11-20 09:12 | disposition home or self-care (01) ==
LOC: ED 09:01
PROVIDERS: Emergency Provider Emergency Medicine Emergency Medical Services; PCP Physician Assistant Medical
DX: K52.9 Noninfective gastroenteritis and colitis, unspecified (principal)
CPT/HCPCS: 99283; 99284

== ENCOUNTER 2024-04-11 07:40 | Outpatient (CLI) | payer OTHER, SELFPAY ==
--- OUTSIDE RECORDS SUMMARY | 2024-04-15 14:28 | XMS_ITS | Clinical Summary ---
Author Organization [employer] [facility] Address [place], [place] [address] Care Team Providers Care Interpretive Program Coordinator Name Role Phone [facility] Primary Care Provider Unavailabl e Allergies No [...] 12/11/2000 11/13/2005 EXAMINATION, PREOPERATIVE NEC 12/11/2000 11/20/2005 Immunizations Name Administration Dates Next Due Influenza, [...] 73 01/13/2016 1:25 PM CDT Temperature 36.7 C (98 F) 11/20/2005 11:00 AM CDT Respiratory Rate 16 07/20/2005 2:15 PM MINI BACCARAT DEALER Oxygen Saturation - - Inhaled Oxygen Concentration [...] Tetanus booster 02/25/2014 02/26/2004 COVID-19 vaccine series ( season) 2024 06/17/2021, 09/04/2020, 08/14/2020 Influenza for age 50-64 01/27/2024 02/26/2004 Pneumococcal series for age 6-64 Aged Out No longer eligible b ased on patient's age to complete this topic Procedures Procedure Name Priority Date/Time Associated Diagnosis Comments LIPID PANEL Routine 07/31/2005 3:15 PM MINI BACCARAT DEALER Screening Lipid Disorders from Last 3 Months or Most Recently Relevant to Health Maintenance Results * (ABNORMAL) LIPID PANEL (07/31/2005 3:15 PM MINI BACCARAT DEALER) CHOLESTEROL,TOTAL 230(H) 110 - 199 mg/dL [facility] TRIGLYCERIDES 122 40 - 149 mg/dL [facility] HDL CHOLESTEROL 51 >40 mg/dL [facility] CHOL/HDL RATIO 4.51(H) <4.51 [facility] LDL CHOLESTEROL 155(H) <131 mg/dL [facility] PATIENT STATUS Fasting [facility] Blood specimen (specimen) BLOOD SPECIMEN / Unknown 07/31/2005 3:15 PM MINI BACCARAT DEALER 07/31/2005 3:13 PM MINI BACCARAT DEALER Tara Dillard MD CHEMISTRY [facility] [place] ZIP [address] [address] [place] [phone] from Last 3 Months or Most Recently Relevant to Health Maintenance Care Teams Interpretive Program Coordinator Relationship Specialty Start Date End Date [facility] PCP - General 05/09/12
--- OUTSIDE RECORDS SUMMARY | 2024-04-15 14:29 | XMS_ITS | Continuity of Care Document ---
Author Organization [facility], [facility] Address [address] [place] [place] [address] Care Team Providers Care Editor Newspaper Name Role Phone [facility] Primary Care Provider Assessment Encounter Date Assessment Date Assessment LastModified by Organization Details LastModified Time 03/10/2024 03/10/2024 63 yoM with Peyronie's disease, erectile dysfunction [email or web address] Not available 02/29/2024 14:17:54 Plan of Treatment Reminders Order Date Submit Date Provider Last Modified By Organization Details Last Modified Time Details Appointments ESTABLISH ED 10 2023 01:40P Cari Carrillo MD Not available Not available Not available Lab None recorded. Referral None recorded. Procedures None recorded. Surgeries None recorded. Imaging None recorded. Medication Orders Xiaflex 0.9 mg solution for injection 2023 024 [email or web address] [facility] [address] [address] [place], [address], 03/10/2024 13:55:16 Patient TargetsNo targets recorded. Patient InstructionsNo instructions recorded. Reason for Referral None Reported. Procedures Surgical History Date Name Laterality Status Provider Name and Address Organization Details Recorded Time 03/13/20 Darcie Rushing [facility] 03/06/2024 16:01:45 03/13/20 COMPLEX VISIT completed Jaret Carrillo MD [address], [place], [address], [facility] 03/13/2024 09:19:38 03/10/20 Darcie Rushing [facility] 02/29/2024 14:17:49 01/10/20 24 Xiaflex - Gerardo completed Skylar Kristan [facility] 01/09/2024 16:57:47 01/10/20 24 COMPLEX VISIT completed Jaret Carrillo MD [address], [place], [address], [facility] 01/10/2024 17:59:31 01/09/20 24 Xiaflex - Gerardo completed Skylar Kristan [facility] 01/08/2024 18:04:28 01/09/20 24 COMPLEX VISIT completed Jaret Carrillo MD [address] [place] [address],[address], [place], [address], [facility] 01/08/2024 22:59:16 01/02/20 24 COMPLEX VISIT completed Jaret Carrillo MD [address] [place] [address],[address], [place], [address], [facility] 01/02/2024 23:18:07 11/23/19 24 Ramonaflex - Gerardo completed Jaret Carrillo MD [address] [place] [address],[address], [place], [address], [facility] 11/23/2023 08:12:26 11/21/19 24 Xiaflex - Gerardo completed Jaret Carrillo MD [address] [place] [address],[address], [place], [address], [facility] 11/20/2023 23:45:48 11/21/19 24 Xiaflex completed Jaret Carrillo MD [address] [place] [address],[address], [place], [address], [facility] 11/20/2023 23:46:01 11/15/19 24 COMPLEX VISIT completed Jaret Carrillo MD [address] [place] [address],[address], [place], [address], [facility] 11/15/2023 17:53:42 10/04/19 24 Ramonaflex Uziel Carrillo completed Skylar Gautam [facility] 10/02/2023 14:40:59 10/04/19 24 Xiaflex completed Jaret Carrillo MD [address] [place] [address],[address], [place], [address], [facility] 10/04/2023 13:33:48 10/01/19 24 Xiaflex - Gerardo completed Skylar Aponteaide [facility] 09/28/2023 10:50:27 10/01/19 24 Xiaflex completed Jaret Carrillo MD [address],[facility] [address], [place], [address], [facility] 10/01/2023 13:17:07 05/28/19 [address] Susan Ramirez [facility] 11/15/2023 14:33:18 05/28/19 00 Hernia Repair completed Susan Ramirez [facility] 11/15/2023 14:32:55 Imaging Results None recorded. Procedure Notes None recorded. Medical Equipment None Reported. Allergies Allergen ID Allergen Name Allergen Category Reaction Reaction Severity Criticality Documentation Date Start Date Code Code System Note Provider Name and Address Organization Details Recorded Time [id number] metronida zole medicatio n Not available Not available Not available 08/22/2023 6922 RxNorm Skylar Stromquis karl vicente [facility] 4 14:48:33 758364 lisinopri l medicatio n Not available Not available Not available 08/22/2023 56782 RxNorm Skylar Stromquis karl vicente [facility] 4 14:49:08 Medications Name Sig Start Date [...] Available Not Available No t Available amoxicillin 875 mg-potassiu m clavulanate 125 mg tablet TAKE 1 TABLET BY MOUTH TWICE DAILY 03/10 completed Not Available Not Available Not Available amoxicillin 500 mg-potassiu m clavulanate 125 [...] EAR(S) 4 TIMES DAILY FOR 7 DAYS 01/01 completed Not Available Not Available Not Available Pepcid active Not Available Not Availa [...] and Address Organization Details Last Updated DateTime 03/10/2024 175.26 cm 25.1 kg/m2 32431.7 g Skylar Rushing [facility] 03/10/2024 13:50:31 Social History Question Answer Notes LastModified by Organizat ion Details LastModified Time Tobacco Smoking Status Never Smoker Skylar vicente, [facility] 08/22/2023 14:50:51 What Is Your Level Of Alcohol Consumption? Moderate Information not available 08/22/2023 What Is Your Level Of Caffeine Consumption? Moderate [email or web address] Information not available 11/15/2023 Race White [email or web address] Information not available 11/15/2023 Ethnicity Not /Lati no [email or web address] Information not available 11/15/2023 Preferred Language Malay [email or web address] Information not available 11/15/2023 What Was The Date Of Your Most Recent Tobacco Screening? 03/10/2024 [email or web address] Information not available 03/10/2024 Have You Ever Been Counseled For Unhealthy Alcohol Use? No [email or web address] Information not available 03/10/2024 Do You Use Any Illicit Or Recreational Drugs? No [email or web address] Information not available 03/10/2024 Has Tobacco Cessation Counseling Been Provided? No [email or web address] Information not available 01/10/2024 Do You Or Have You Ever Used Any Other Forms Of Tobacco Or Nicotine? No Information not available 01/10/2024 How Many Days In The Past Year Have You Consumed 5 Or More Drinks? 0 Information no t available 08/22/2023 Sex: Unknown Functional Status None recorded. Mental Status None recorded. Family History Relationship Description Onset Age of this Age Resolved Age Notes LastModified by Organization Details LastModified Time Father No current problems or disability Not available 14:32:16 Mother No current problems or disability [email or web address] Not available 14:32:16 Medical History Condition Response Sexually Transmitted Infection N Diabetes N Other N Bleeding Disorder N High Blood Pressure Y Kidney Stones N High Cholesterol Y GERD/Acid Reflux Y Heart Disease N Cancer Y Lung Disease N Depression N Immunizations Vaccine Type Date Status Provider Name and Address Organization Details Recorded Time Influenza, split virus, quadrivalent, preservative 05/17/2017 completed Skylar Gautam null, [facility] 08/22/2023 14:48:06 Influenza, recombinant, quadrivalent, PF 04/09/2020 completed Skylar Gautam null, [facility] 08/22/2023 14:48:06 zoster recombinant 07/04/2020 completed Skylar Dain null, [facility] 08/22/2023 14:48:06 zoster recombinant 04/09/2020 completed Skylar Gautam null, [facility] 08/22/2023 14:48:06 COVID-19, mRNA, LNP-S, PF, 30 mcg/0.3 mL dose 08/14/2020 completed Skylar Stromquist null, [facility] 08/22/2023 14:48:06 COVID-19, mRNA, LNP-S, PF, 30 mcg/0.3 mL dose 09/04/2020 completed Skylar Stromquist null, [facility] 08/22/2023 14:48:06 COVID-19, mRNA, LNP-S, PF, 30 mcg/0.3 mL dose, andrea-sucrose 06/17/2021 completed Skylar Stromquist null, [facility] 08/22/2023 14:48:06 Tdap 05/18/2015 completed Skylar Stromquist null, [facility] 08/22/2023 14:48:06 Influenza, split virus, trivalent, preservative 02/26/2004 completed Skylar Stromquist null, [facility] 08/22/2023 14:48:06 Influenza, split virus, trivalent, PF 07/31/2011 completed Skylar Stromquist null, [facility] 08/22/2023 14:48:06 Influenza, split virus, trivalent, PF 03/12/2009 completed Skylar Stromquist null, [facility] 08/22/2023 14:48:06 Influenza, split virus, trivalent, PF 04/28/2010 completed Skylar Stromquist null, [facility] 08/22/2023 14:48:06 Td (adult), 2 Lf tetanus toxoid, preservative free, adsorbed 02/26/2004 completed Skylar Stromquist null, [facility] 08/22/2023 14:48:06 Influenza, split virus, quadrivalent, PF 04/06/2022 completed Skylar Stromquist null, [facility] 08/22/2023 14:48:06 Influenza, split virus, quadrivalent, PF 05/18/2015 completed Skyalr Stromquist null, 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 Bernard is a very pleasant 63 [...] his who provides some of the history 10/01/2023:Here for follow up Peyronie's disease. Xiaflex injection #1 10/04/2023:Here for follow up Peyronie's disease. Xiaflex injection #2. No significant adverse effects from injection 1. 11/15/2023:Here for follow up Peyronie's disease. Completed Xiaflex cycle 1. Today he reports 30 degrees of residual curvature 11/21/2023:Xiaflex injection 1, cycle 2. 11/23/2023:Here for follow up Peyronie's disease. Xiaflex injection #2, Cycle #2. No significant adverse effects from injection 1. 01/02/2024Here for follow chronic Peyronie's disease. Reports change in scar tissue plaque and improvement in his curvature. Does report that residual curvature still precludes intercourse. 01/09/2024:Here for follow up Peyronie's disease. Completed Xiaflex cycle 2. Here for injection 1 of cycle 3. 01/10/2024:Here for follow up Peyronie's disease. Here for injection 2 of cycle 3. 03/10/2024:Here for follow chronic Peyronie's disease. Has completed 3 cycles of Xiaflex. Current curvature: * degrees. Here for injection 1 of cycle 4 Jaret Carrillo MD [address],[place] [address], [place], [address], [facility] 03/10/2024 18:01:11
--- OUTSIDE RECORDS SUMMARY | 2024-04-15 14:29 | XMS_ITS | Data Portability ---
Author Organization [facility] Piter[facility] gy, [facility] Address [address] [facility] [address] [place] [address] Care Team Providers Care Brake Repairer Hydraulic Name Role Phone [facility] Primary Care Provider Assessment Encounter Date Assessment Date Assessment LastModified by Organization Details LastModified Time 01/02/2024 01/02/2024 63 yoM with Peyronie's disease, erectile dysfunction [email or web address] Not available 12/27/2023 15:46:43 01/09/2024 01/09/2024 63 yoM with Peyronie's disease, erectile dysfunction [email or web address] Not available 01/08/2024 18:04:31 01/10/2024 01/10/2024 63 yoM with Peyronie's disease, erectile dysfunction [email or web address] Not available 01/09/2024 16:57:40 03/10/2024 03/10/2024 63 yoM with Peyronie's disease, erectile dysfunction [email or web address] Not available 02/29/2024 14:17:54 03/13/2024 03/13/2024 63 yoM with Peyronie's disease, erectile dysfunction [email or web address] Not available 03/06/2024 16:01:41 Plan of Treatment Reminders Order Date Submit Date Provider Last Modified By Organization Details Last Modified Time Details Appointments ESTABLISH ED 10 2023 01:40P Cari Carrillo MD Not available Not available Not available Lab None recorded. Referral None recorded. Procedures None recorded. Surgeries None recorded. Imaging None recorded. Medication Orders Xiaflex 0.9 mg solution for injection 2023 024 [email or web address] [facility], [address] [place], [address], 01/09/2024 13:04:26 Xiaflex 0.9 mg solution for injection [address] [facility] [address] [facility], [address] [place], [address], 01/10/2024 15:29:00 Xiaflex 0.9 mg solution for injection [email or web address] [facility], [address] [place], [address], 03/10/2024 13:55:16 Xiaflex 0.9 mg solution for injection [address] [facility] [address] [facility], [address] [place], [address], 03/13/2024 15:05:58 Patient TargetsNo targets recorded. Patient InstructionsNo instructions recorded. Reason for Referral None Reported. Procedures Surgical History Date Name Laterality Status Provider Name and Address Organization Details Recorded Time 03/13/20 Darcie Carrillo completed Skylar Rushing [facility] 03/06/2024 16:01:45 03/13/20 COMPLEX VISIT completed Jaret Carrillo MD [address] [place] [address],[address], [address], [facility] 03/13/2024 09:19:38 03/10/20 24 Darcie Carrillo completed Skylar Kristan [facility] 02/29/2024 14:17:49 01/10/20 Darcie Carrillo completed Skylar Kristan [facility] 01/09/2024 16:57:47 01/10/20 24 COMPLEX VISIT completed Jaret Carrillo MD [address] [facility],[address], [place], [address], [facility] 01/10/2024 17:59:31 01/09/20 24 Darcie Carrillo completed Skylar Kristan [facility] 01/08/2024 18:04:28 01/09/20 24 COMPLEX VISIT completed Jaret Carrillo MD [address] [facility],[address], [place], [address], [facility] 01/08/2024 22:59:16 01/02/20 24 COMPLEX VISIT completed Jaret Carrillo MD [address] [facility],[address], [place], [address], [facility] 01/02/2024 23:18:07 11/23/19 24 Xiaflex - Gerardo completed Jaret Carrillo MD [address] [place] [address] Road,[address], [place], [address], [facility] 11/23/2023 08:12:26 11/21/19 24 Ramonaflex - Gerardo completed Jaret Carrillo MD [address] [place] [address],[address], [place], [address], [facility] 11/20/2023 23:45:48 11/21/19 24 Xiaflex completed Jaret Carrillo MD [address] [place] [address],[address], [place], [address], [facility] 11/20/2023 23:46:01 11/15/19 24 COMPLEX VISIT completed Jaret Carrillo MD [address] [place] [address],[address], [place], [address], [facility] 11/15/2023 17:53:42 10/04/19 24 Ramonaflex Uziel Carrillo completed Skylar Gautam [facility] 10/02/2023 14:40:59 10/04/19 24 Xiaflex completed Jaret Carrillo MD [address] [place] [address],[address], [place], [address], [facility] 10/04/2023 13:33:48 10/01/19 24 Ramonaflex Uziel Carrillo completed Skylar Gautam [facility] 09/28/2023 10:50:27 10/01/19 24 Xiaflex completed Jaret Carrillo MD [address] [place] [address],[address], [place], [address], [facility] 10/01/2023 13:17:07 05/28/19 22 Colonoscopy completed Susan Ramirez [facility] 11/15/2023 14:33:18 05/28/19 00 Hernia Repair completed Susan Ramirez [facility] 11/15/2023 14:32:55 Imaging Results None recorded. Procedure Notes None recorded. Medical Equipment None Reported. Allergies Allergen ID Allergen Name Allergen Category Reaction Reaction Severity Criticality Documentation Date Start Date Code Code System Note Provider Name and Address Organization Details Recorded Time 637302 metronida zole medicatio n Not available Not available Not available 08/22/2023 6922 RxNorm Skylar Stromquis karl vicente [facility] 14:48:33 074943 lisinopri l medicatio n Not available Not available Not available 08/22/2023 78228 RxNorm Skylar Stromquis karl vicente [facility] 14:49:08 Medications Name Sig Start Date Stop [...] and Address Organization Details Last Updated DateTime 01/02/2024 175.26 cm 26.9 kg/m2 66894.81 g Susan Ramirez [facility] 01/02/2024 14:40:25 Date Recorded Body height Body mass index (BMI) Body weight Provider Name and Address Organization Details Last Updated DateTime 01/10/2024 175.26 cm 26.9 kg/m2 12826.81 g Skylar Rushing [facility] 01/10/2024 15:29:18 Date Recorded Body height Body mass index (BMI) Body weight Provider Name and Address Organization Details Last Updated DateTime 03/10/2024 175.26 cm 25.1 kg/m2 06463.7 g Skylar Rushing [facility] 03/10/2024 13:50:31 Social History Question Answer Notes LastModified by Organizat ion Details LastModified Time Tobacco Smoking Status Never Smoker Skylar vicente [facility] 08/22/2023 14:50:51 What Is Your Level Of Alcohol Consumption? Moderate Information not available 08/22/2023 What Is Your Level Of Caffeine Consumption? Moderate [email or web address] Information not available 11/15/2023 Race White [email or web address] Information not available 11/15/2023 Ethnicity Not /Lati no [email or web address] Information not available 11/15/2023 Preferred Language Romanian [email or web address] Information not available 11/15/2023 What Was The Date Of Your Most Recent Tobacco Screening? 03/10/2024 [email or web address] Information not available 03/10/2024 Have You Ever Been Counseled For Unhealthy Alcohol Use? No [email or web address] Information not available 03/10/2024 Do You Use Any Illicit Or Recreational Drugs? No [email or web address] Information not available 03/10/2024 Has Tobacco Cessation Counseling Been Provided? No [email or web address] Information not available 01/10/2024 Do You Or Have You Ever Used Any Other Forms Of Tobacco Or Nicotine? No [email or web address] Information not available 01/10/2024 How Many Days In The Past Year Have You Consumed 5 Or More Drinks? 0 Information no t available 08/22/2023 Sex: Unknown Functional Status None recorded. Mental Status None recorded. Family History Relationship Description Onset Age of this Age Resolved Age Notes LastModified by Organization Details LastModified Time Father No current problems or disability [email or web address] Not available 14:32:16 Mother No current problems or disability [email or web address] Not available 14:32:16 Medical History Condition Response Diabetes N Sexually Transmitted Infection N Bleeding Disorder N Other N High Blood Pressure Y Kidney Stones N Cancer Y Depression N Lung Disease N High Cholesterol Y GERD/Acid Reflux Y Heart Disease N Immunizations Vaccine Type Date Status Provider Name and Address Organization Details Recorded Time Influenza, split virus, quadrivalent, preservative 05/17/2017 completed Skylar Gautam null, [facility] 08/22/2023 14:48:06 Influenza, recombinant, quadrivalent, PF 04/09/2020 completed Skylar Gautam null, [facility] 08/22/2023 14:48:06 zoster recombinant 07/04/2020 completed Skylar Gautam null, [facility] 08/22/2023 14:48:06 zoster recombinant 04/09/2020 completed Skylar Gautam null, [facility] 08/22/2023 14:48:06 COVID-19, mRNA, LNP-S, PF, 30 mcg/0.3 mL dose 08/14/2020 completed Skylar Stromquist null, [facility] 08/22/2023 14:48:06 COVID-19, mRNA, LNP-S, PF, 30 mcg/0.3 mL dose 09/04/2020 completed Skylar Stromquist null, [facility] 08/22/2023 14:48:06 COVID-19, mRNA, LNP-S, PF, 30 mcg/0.3 mL dose, andrea-sucrose 06/17/2021 completed Skylar Stromquist null, [facility] 08/22/2023 14:48:06 Tdap 05/18/2015 completed Skylar Stromquist null, [facility] 08/22/2023 14:48:06 Influenza, split virus, trivalent, preservative 02/26/2004 completed Skylar Stromquist null, [facility] 08/22/2023 14:48:06 Influenza, split virus, trivalent, PF 07/31/2011 completed Skylar Stromquist null, [facility] 08/22/2023 14:48:06 Influenza, split virus, trivalent, PF 03/12/2009 completed Skylar Stromquist null, [facility] 08/22/2023 14:48:06 Influenza, split virus, trivalent, PF 04/28/2010 completed Skylar Stromquist null, [facility] 08/22/2023 14:48:06 Td (adult), 2 Lf tetanus toxoid, preservative free, adsorbed 02/26/2004 completed Skylar Stromquist null, [facility] 08/22/2023 14:48:06 Influenza, split virus, quadrivalent, PF 04/06/2022 completed Skylar Stromquist null, [facility] 08/22/2023 14:48:06 Influenza, split virus, quadrivalent, PF 05/18/2015 completed Skylar Stromquist null, [facility] 08/22/2023 14:48:06 Past Encounters Encounter ID Performer Location Encounter Start Date Encounter Closed Date Diagnosis/Indication Diagnosis SNOMED-CT Code Diagnosis ICD10 Code [id number] Jaret Carrillo MD [facility] [address] [place] [address] 08/22/2023 14:28:19 08/23/2023 09:36:11 Induration penis plastica 3617538 N48.6 Primary er ectile dysfunction 832731697 N52.9 [id number] Jaret Carrillo MD [facility] [address] [place] [address] 10/01/2023 10:53:25 10/02/2023 08:30:33 Induration penis plastica 6883266 N48.6 Primary er ectile dysfunction 456063916 N52.9 [id number] Jaret Carrillo MD [facility] [address] [place] [address] 10/04/2023 11:34:59 10/05/2023 14:34:38 Induration penis plastica 3943138 N48.6 Primary er ectile dysfunction 180705446 N52.9 [id number] Jaret Carrillo MD [facility] [address] [place] [address] 11/15/2023 14:27:11 11/16/2023 13:12:07 Induration penis plastica 5958534 N48.6 Primary er ectile dysfunction 287374479 N52.9 [id number] Jaret Carrillo MD [facility] [address] [place] [address] 11/23/2023 09:20:38 11/26/2023 15:24:52 Induration penis plastica 0486145 N48.6 Primary er ectile dysfunction 819044019 N52.9 [id number] Jaret Carrillo MD [facility] [address] [place] [address] 11/21/2023 14:33:59 11/22/2023 15:53:52 Induration penis plastica 7704432 N48.6 Primary er ectile dysfunction 987860212 N52.9 [id number] [facility] [address] [place] [address] 01/02/2024 14:34:03 01/07/2024 15:56:49 Induration penis plastica 0804900 N48.6 Primary er ectile dysfunction 467480949 N52.9 [id number] Jaret Carrillo MD [address] [place], [place] [address] 01/09/2024 12:37:03 01/11/2024 10:44:29 Induration penis plastica 9054253 N48.6 Primary er ectile dysfunction 000119812 N52.9 [id number] Jaret Carrillo MD [facility] [address] [place] [address] 01/10/2024 15:03:59 01/16/2024 09:59:24 Induration penis plastica 5540536 N48.6 Primary er ectile dysfunction 996948324 N52.9 [id number] Jaret Carrillo MD [facility] [address] [place] [address] 03/10/2024 13:42:16 03/11/2024 09:54:41 Induration penis plastica 7614083 N48.6 Primary er ectile dysfunction 025000523 N52.9 [id number] Jaret Carrillo MD [facility] [address] [place] [address] 03/13/2024 14:57:13 03/14/2024 15:02:00 Induration penis plastica 9143218 N48.6 Primary er ectile dysfunction 817632050 N52.9 Health Concerns Section Related Observation LastModified by Organization Detai ls LastModified Time None Recorded Concern Status LastModified by Organization Details LastModified Time None Recorded Advance Directives Directive None Recorded Payers Encounter Date Sequence Insurance Name Policy Number Policy Riddle Covered Member ID Riddle Member ID Guarantor Name 01/02/2024 1 [employer] [id number] Kacey Bernard [id number] Alfredito Bernard 01/09/2024 1 [employer] [id number] Kacey Bernard [id number] Alfredito Bernard 01/10/2024 1 [employer] [id number] Kacey Bernard [id number] Alfredito Bernard 03/10/2024 1 [employer] [id number] Kacey Bernard [id number] Alfredito Bernard 03/13/2024 1 [facility] [id number] Kacey Bernard [id number] Alfredito Bernard Notes Date Note Type Note Provider Name and Address Organization Details Recorded Time 01/02/2024 text/html Mr. Bernard is a very pleasant [...] report that residual curvature still precludes intercourse. Jaret Carrillo MD [address] [place] [address],[address], [place], [address], [facility] 01/02/2024 23:18:22 01/09/2024 text/html Mr. Bernard is a very pleasant [...] Here for injection 1 of cycle 3. Jaret Carrillo MD [address] [place] [address],[address], [address], [facility] 01/09/2024 14:05:27 01/10/2024 text/html Mr. Bernard is a very pleasant [...] Here for injection 2 of cycle 3. Jaret Carrillo MD [address] [place] [address],[address], [place], [address], [facility] 01/10/2024 18:00:04 03/10/2024 text/html Mr. Bernard is a very [...] 1 of cycle 4 Jaret Carrillo MD [address] [place] [address],[address], [place], [address], [facility] 03/10/2024 18:01:11 03/13/2024 text/html Mr. Bernard is a very pleasant [...] Peyronie's disease. Has completed 3 cycles of Xiaflex.Here for injection 1 of cycle 4 03/13/24:Here for follow chronic Peyronie's disease. Has completed 3 cycles of Xiaflex.Here for injection 2 of cycle 4 Jaret Carrillo MD [address] [facility],[address], [address], [facility] 03/13/2024 23:25:41
== END 2024-04-11 07:41 | disposition home or self-care (01) ==
LOC: NFLDREF 04-15 14:27
PROVIDERS: PCP Physician Assistant Medical; Referring Provider Physician Assistant Medical; Visit Provider Physician Assistant Medical
DX: E78.5 Hyperlipidemia, unspecified (principal); I10 Essential (primary) hypertension; R97.20 Elevated prostate specific antigen [PSA]; Z12.5 Encounter for screening for malignant neoplasm of prostate; Z13.0 Encounter for screening for diseases of the blood and blood-forming organs and certain disorders involving the immune mechanism
CPT/HCPCS: 80053; 80061; 85027; G0103

== ENCOUNTER 2025-04-11 08:31 | Emergency (ER) | payer BC, SELFPAY ==
[2025-04-11 08:40] VITALS: BP 130/82; PULSE 58; RESP 16; TEMP 36.2; O2SAT 99; BMI 25.1
--- NOTE | 2025-04-11 09:35 | ED.DIZZY ---
HPI - Dizziness General Chief Complaint: Dizziness/Vertigo Stated Complaint: dizziness Time Seen by Provider: 04/11/25 09:17 History of Present Illness HPI Narrative: This 64-year-old male comes in reporting a lightheaded episode that occurred this morning and lasted about 20 minutes. He was standing and putting on his clothes at the time this began. He eventually went upstairs and lay down and symptoms resolved. He did not have any nausea or loss of consciousness. He did not have any diaphoresis or report any pain. 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 He does not report any prior episodes of lightheadedness. He does take 2 antihypertensive medicines, losartan, and hydrochlorothiazide. He states that he took these medicines just a few minutes before these symptoms occurred. Currently he feels completely normal. Related Data Home Medications ?Medication ?Instructions ?Recorded ?Confirmed aspirin 81 mg tablet,delayed 81 mg PO DAILY 01/10/22 04/11/25 release cholecalciferol (vitamin D3) 50 50 mcg PO QDAY 04/06/22 04/11/25 mcg (2,000 unit) capsule famotidine 20 mg tablet 20 mg PO QDAY 04/09/23 04/11/25 Mulitvitamin PO 01/31/24 04/16/24 pentoxifylline 400 mg 400 mg PO BID 04/11/25 04/11/25 tablet,extended release tadalafil 20 mg tablet 20 mg PO DAILY 04/11/25 04/11/25 Previous Rx's ?Medication ?Instructions ?Recorded hydrochlorothiazide 12.5 mg tablet 12.5 mg PO QDAY #90 tabs 04/16/24 losartan 100 mg tablet 100 mg PO QDAY #90 tabs 04/16/24 simvastatin 40 mg tablet 40 mg PO .Bedtime #90 tabs 04/16/24 Allergies Allergy/AdvReac Type Severity Reaction Status Date / Time metronidazole Allergy Severe Rash Verified 04/11/25 08:39 lisinopril Allergy Mild Cough Verified 04/11/25 08:39 Review of Systems Status of ROS: Reports: 10 or more systems reviewed and unremarkable except as noted in History and below Narrative: Constitutional: No fevers, no weight gain or loss. Eyes: No discharge. No vision changes. HENT: No congestion, no sore throat, no ear pain. Cardiovascular: No chest pain, no palpitations. Respiratory: No shortness of breath, no wheezes, no cough. Gastrointestinal: No abdominal pain, no vomiting, no diarrhea. Genitourinary: No dysuria, no hematuria. Musculoskeletal: Normal range of motion. Skin: No rashes, no pruritis. Neurological: No weakness, sensory change, speech change. Endo/Heme/Allergies: No bruising or bleeding. No polydipsia. Pysch: no suicidality, no anxiety, no insomnia. All other systems reviewed and are negative. [facility] Medical History (Updated 04/11/25 @ 10:33 by Sunil Loaiza MD) Elevated fasting glucose (~04/09/23) ?R73.01 - Impaired fasting glucose (ICD-10) Low back pain ?M54.50 - Low back pain, unspecified (ICD-10) Elevated C-reactive protein (CRP) ?R79.82 - Elevated C-reactive protein (CRP) (ICD-10) Tendinitis involving left hip abductors ?M76.892 - Other specified enthesopathies of left lower limb, excluding foot (ICD-10) Greater trochanteric bursitis of left hip ?M70.62 - Trochanteric bursitis, left hip (ICD-10) Anticoagulation goal of INR 2.0 to 2.5 ?Z51.81 - Encounter for therapeutic drug level monitoring (ICD-10) ?Z79.01 - senior care (current) use of anticoagulants (ICD-10) Surgical History History of arthroscopy of right shoulder (09/05/05) ?Z98.890 - Other specified postprocedural states (ICD-10) History of arthroscopy of left shoulder (11/16/05) ?Z98.890 - Other specified postprocedural states (ICD-10) History of shoulder surgery (06/30/08) ?Z98.890 - Other specified postprocedural states (ICD-10) History of arthroscopy of left shoulder (05/06/10) ?Z98.890 - Other specified postprocedural states (ICD-10) S/P left knee arthroscopy (07/02/14) ?Z98.890 - Other specified postprocedural states (ICD-10) S/P arthroscopic partial medial meniscectomy (11/16/16) ?Z98.890 - Other specified postprocedural states (ICD-10) History of carpal tunnel release (07/17/18) ?Z98.890 - Other specified postprocedural states (ICD-10) History of arthroscopy of left shoulder (07/30/19) ?Z98.890 - Other specified postprocedural states (ICD-10) Varicose veins of both lower extremities ?I83.93 - Asymptomatic varicose veins of bilateral lower extremities (ICD-10) 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 Never-smoker Occasional alcohol consumption Smoking Status: Never smoker How often do you have a drink containing alcohol: never AUDIT-C Alcohol total score: 0 Non-prescribed substance use: denies use service: Yes Exam Narrative: Exam Narrative: Constitutional: Well-developed, well-nourished, no acute distress. HEENT: Normocephalic, atraumatic. Neck: Normal range of motion. Nontender. Supple. Heart: Regular. No murmurs. Normal rate. Intact distal pulses. Lungs: Clear to auscultation. No chest discomfort. No wheezes, rhonchi, or rales. Abdomen: Normal bowel sounds. Nontender. No rebound tenderness. Genitalia: Deferred. Back: No midline tenderness. Normal range of motion. Extremities: Normal range of motion. No injury. Skin: Intact. No rash. Warm. No erythema or pallor. Neurologic: No altered sensation. No weakness. Alert and oriented. Psychiatric: No suicidality. No anxiety or depression. No insomnia. Nursing notes and vitals signs are reviewed. Const: Vital Signs, click to edit/add: Vital Signs - 24 hr 04/11/25 08:40 04/11/25 10:05 Temperature 97.2 F L Pulse Rate 49 L Pulse Rate [Pulse Oximeter] 58 L Respiratory Rate 16 16 Blood Pressure 150/113 H Blood Pressure [Ri ght Upper Arm] 130/82 Pulse Oximetry 99 98 Oxygen Delivery Me thod Room Air Course Vital Signs Vital signs: Initial Vital Signs Temperature 97.2 F L 04/11/25 08:40 Temperature Source Temporal Artery Scan 04/11/25 08:40 Pulse Rate 58 L 04/11/25 08:40 Pulse Rhythm Regular 04/11/25 08:40 Respiratory Rate 16 04/11/25 08:40 Blood Pressure 130/82 04/11/25 08:40 Blood Pressure Mean 98 04/11/25 08:40 Blood Pressure Position Sitting 04/11/25 08:40 Pulse Oximetry 99 04/11/25 08:40 Oxygen Delivery Method Room Air 04/11/25 08:40 Vital Signs Temperature 97.2 F L 04/11/25 08:40 Pulse Rate 58 L 04/11/25 08:40 Respiratory Rate 16 04/11/25 08:40 Blood Pressure 130/82 04/11/25 08:40 Pulse Oximetry 99 04/11/25 08:40 Oxygen Delivery Method Room Air 04/11/25 08:40 Temperature 97.2 F L 04/11/25 08:40 Pulse Rate 49 L 04/11/25 10:05 Respiratory Rate 16 04/11/25 10:05 Blood Pressure 150/113 H 04/11/25 10:05 Pulse Oximetry 98 04/11/25 10:05 Oxygen Delivery Method Room Air 04/11/25 08:40 MDM - Dizziness MDM Narrative Medical decision making narrative: This patient comes in with an episode of lightheadedness as described above. He feels back to normal after this episode of 20 minutes occurred. EKG today and lab results returned with normal findings. The patient does have a slow heart rate but this is asymptomatic for him an indicator of a good stroke volume. He is on some eye antihypertensive medicines a but electrolytes return in normal range. I did describe various contributors toward an event of lightheadedness like this. The patient is okay to be discharged home to resume current and regular activities as tolerated. He should return if symptoms are recurrent. Lab Data Labs: Lab Results 04/11/25 Range/Units 09:58 WBC 6.02 (4.50-11.00) K/uL RBC 5.02 (4.30-5.90) m/uL Hgb 15.7 (13.5-17.5) gm/dL Hct 46.1 (37.0-53.0) % MCV 92 (80-100) fL MCH 31 (26-34) pg MCHC 34 (32-36) gm/dL RDW Coeff of Lennie 12.2 (11.5-15.5) % Plt Count 141 (140-440) K/uL Neut % (Auto) 78.8 H (42.0-72.0) % Lymph % (Auto) 13.1 L (20-44) % [place] % (Auto) 6.5 (0.0-11.0) % Eos % (Auto) 0.8 (0.0-7.0) % Baso % (Auto) 0.5 (0.0-3.0) % Neut # (Auto) 4.70 (1.7-7.0) K/uL Lymph # (Auto) 0.80 L (0.90-2.90) K/uL [place] # (Auto) 0.40 (0.00-0.90) K/UL Eos # (Auto) 0.05 (0.00-0.50) K/uL Baso # (Auto) 0.03 (0.00-0.30) K/uL Abs Immat Gran (auto) 0.02 (0.00-0.30) K/uL Imm/Tot Granulo (auto) 0.3 % Sodium 137 (135-149) mmol/L Potassium 4.2 (3.6-5.1) mmol/L Chloride 97 (96-114) mmol/L Carbon Dioxide 29 (20-32) mmol/L Anion Gap 11 (7-15) mEq/L BUN 25 (7-30) mg/dL Creatinine 0.8 (0.5-1.5) mg/dL Estimated Creat Clear 73.65 Estimated GFR 98 ml/min Glucose 100 (60-115) mg/dL Calcium 9.7 (8.4-10.6) mg/dL ECG Data Attestation: I personally reviewed and interpreted this ECG as follows: Interpretation: Sinus bradycardia, rate 47 beats per minute. There are no specific ST or T-wave abnormalities. Discharge Plan Discharge Clinical Impression: Episodic lightheadedness Patient Disposition: Home, Self-Care Condition: Stable Additional Instructions: Continue current medications and plans. Resume normal activities as tolerated. Follow up with MD return if symptoms are recurrent or worsening. Prescriptions: No Action aspirin 81 mg tablet,delayed release (DR/EC) 81 mg PO DAILY cholecalciferol (vitamin D3) 50 mcg (2,000 unit) capsule 50 mcg PO QDAY famotidine 20 mg tablet 20 mg PO QDAY Mulitvitamin PO simvastatin 40 mg tablet 40 mg PO .Bedtime Qty: 90 3RF losartan 100 mg tablet 100 mg PO QDAY Qty: 90 3RF Rx Instructions: 1 tablet once daily for blood pressure hydrochlorothiazide 12.5 mg tablet 12.5 mg PO QDAY Qty: 90 3RF Rx Instructions: once a day for blood pressure pentoxifylline 400 mg tablet extended release 400 mg PO BID tadalafil 20 mg tablet 20 mg PO DAILY Follow Up/Referrals: Caterina Helms PA-C [Primary Care Provider, Family Practice] Stand Alone Forms: [facility] Info Instructions
[2025-04-11 10:05] VITALS: BP 150/113; PULSE 49; RESP 16; O2SAT 98
[2025-04-11 10:07] LABS: Hematocrit* 46.1 % (37.0-53.0); Hemoglobin* 15.7 gm/dL (13.5-17.5); Immature Granulocytes Abs Auto 0.02 K/uL (0.00-0.30); Immature Granulocytes Pct Auto 0.3 %; Mean Corpuscular HGB Conc 34 gm/dL (32-36); Mean Corpuscular Hemoglobin 31 pg (26-34); Mean Corpuscular Volume 92 fL (80-100); RDW Coefficient of Variation % 12.2 % (11.5-15.5); Red Blood Count* 5.02 m/uL (4.30-5.90); White Blood Count* 6.02 K/uL (4.50-11.00)
[2025-04-11 10:19] LABS: Chloride* 97 mmol/L (96-114); Sodium* 137 mmol/L (135-149)
[2025-04-11 10:20] LABS: Potassium* 4.2 mmol/L (3.6-5.1)
[2025-04-11 10:22] LABS: Blood Urea Nitrogen* 25 mg/dL (7-30); Creatinine* 0.8 mg/dL (0.5-1.5); Est. Creatinine Clearance* 73.65; Estimated Glomerular Filt Rate 98 ml/min; Lymphocytes Absolute Auto 0.80 K/uL (0.90-2.90)
[2025-04-11 10:23] LABS: Anion Gap 11 mEq/L (7-15); Calcium* 9.7 mg/dL (8.4-10.6); Carbon Dioxide* 29 mmol/L (20-32); Glucose* 100 mg/dL (60-115); Slide Review Reflex No
== END 2025-04-11 10:43 | disposition home or self-care (01) ==
PROVIDERS: Emergency Provider Emergency Medicine Emergency Medical Services; PCP Physician Assistant Medical
DX: R42 Dizziness and giddiness (principal)
CPT/HCPCS: 36415; 80048; 85025; 93005; 99284